=== PATIENT | male | born 1960 | race Caucasian/White ===

== ENCOUNTER 2019-06-04 16:44 | Emergency (ER) | payer MEDICARE, MEDICAID ==
[~2019-06-04] VITALS: Ht 167.6 cm; Wt 67.6 kg
[~2019-06-04 16:44] MED LIST: ALBUTEROL2.5 MG/31 INH; ALPHAGAN P10 ML INTRAOCULR; AUGMENTIN 500-1 EACH PO; CORTIZONE-1028 GM TOP; COSOPT OCUMETER10 M1 INTRAOCULR; DOXYCYCLINE 10100 MG PO; FERROUS SU220 MG/5 M PO; KETOCONAZOLE60 GM TOP; LANTISEPTIC TOP; LOPERAMIDE2 MG PO; LUMIGAN2.5 M1 INTRAOCULR; NAPROSYN500 MG PO; OLANZAPINE10 MG PO; PRILOSEC 20 MG20 MG PO; PRINIVIL10 MG PO; PROAIR HFA8.5 GM INH; TYLENOL325 MG PO; [UNRECOGNIZED DRUG - OTHER] TOP
[2019-06-04] MEDS ORDERED: LISINOPRIL2.5 MG PO (17:01)
[2019-06-04] MEDS ORDERED: NORVASC 2.5 MG2.5 M1 PO (17:01)
[2019-06-04] MEDS ORDERED: OXYBUTYNIN 5 MG5 M1 PO (17:02)
[2019-06-04] MEDS ORDERED: CIPROFLOXIN HC2.5 M1 OPHTHALMIC (17:28)
[2019-06-04 17:43] VITALS: BP 159/135
== END 2019-06-04 17:44 | disposition home or self-care (01) ==
LOC: M.ERS 16:44
DX: S05.8X2A Other injuries of left eye and orbit, initial encounter (principal); Z88.2 Allergy status to sulfonamides; I10 Essential (primary) hypertension; J45.909 Unspecified asthma, uncomplicated; X58.XXXA Exposure to other specified factors, initial encounter; Y93.89 Activity, other specified; Y92.89 Other specified places as the place of occurrence of the external cause; Y99.8 Other external cause status